=== PATIENT | male | born 1955 | race Hispanic/Latino ===

== ENCOUNTER → 2022-11-01 | Outpatient (CLI) | payer OTHER | END | disposition home or self-care (01) | LOC: RAH 08:58 | PROVIDERS: ATTEND Internal Medicine Cardiovascular Disease | DX: R07.89 Other chest pain (principal); I25.10 Atherosclerotic heart disease of native coronary artery without angina pectoris; E78.00 Pure hypercholesterolemia, unspecified; E11.9 Type 2 diabetes mellitus without complications; E03.9 Hypothyroidism, unspecified; Z95.5 Presence of coronary angioplasty implant and graft; Z79.84 Long term (current) use of oral hypoglycemic drugs; Z79.899 Other long term (current) drug therapy | CPT/HCPCS: 78452; 96374; 93017; A9500 ×2 ==

== ENCOUNTER 2022-11-28 09:52 | Emergency (ER) | payer OTHER ==
[~2022-11-28] VITALS: Ht 180.3 cm; Wt 95.3 kg
[2022-11-28 09:57] VITALS: BP 136/82
[2022-11-28] MEDS ORDERED: IBUP-2071 PO (10:28)
[2022-11-28] MEDS ORDERED: AMOX1TAB16 PO (10:28)
[2022-11-28] MEDS ORDERED: AMOX/CLAV 875/125MG TAB PO SCH (10:30)
[2022-11-28] MEDS ORDERED: TETANUS/DIPHTHERIA TOXOID [ADULT] 0.5 ML VIAL IM ONE (10:30)
== END 2022-11-28 10:51 | disposition home or self-care (01) ==
LOC: EDH 09:52
DX: S81.852A Open bite, left lower leg, initial encounter (principal); E11.9 Type 2 diabetes mellitus without complications; W54.0XXA Bitten by dog, initial encounter; Y93.89 Activity, other specified; Y92.89 Other specified places as the place of occurrence of the external cause; Y99.8 Other external cause status
CPT/HCPCS: 90471; 90714

== ENCOUNTER 2024-12-11 08:27 | Day surgery (SDC) | payer OTHER ==
[2024-12-09 10:07] VITALS: BP 143/69; PULSE 73; RESP 18; TEMP 97.9
[2024-12-09 10:07] LABS: BASOPHILS # (AUTO) 0.05 K/uL (0.00-0.20); BASOPHILS % (AUTO) 0.5 % (0.0-5.0); EOSINOPHILS # (AUTO) 0.07 K/uL (0.00-0.70); EOSINOPHILS % (AUTO) 0.7 % (0.0-8.0); HEMATOCRIT 48.1 % (42-54); IMMATURE GRANULOCYTE ABSOLUTE 0.03 K/uL (0-1); LYMPHOCYTES # (AUTO) 1.9 K/uL (1.0-4.8); LYMPHOCYTES % (AUTO) 19.1 % (21.0-51.0); MEAN CORPUSCULAR HGB CONC 34.7 g/dL (32.0-36.0); MEAN CORPUSCULAR VOLUME 83.7 fL (79-99); MONOCYTES # (AUTO) 0.7 K/uL (0.1-1.0); MONOCYTES % (AUTO) 6.9 % (3.0-13.0); NEUTROPHILS # (AUTO) 7.1 K/uL (1.8-7.7); NEUTROPHILS % (AUTO) 72.5 % (40.0-77.0); PLATELET COUNT (AUTO) 238 K/uL (130-400); RED BLOOD CELL COUNT(AUTO) 5.75 MIL/uL (4.50-6.20); WHITE BLOOD COUNT (AUTO) 9.8 K/uL (4.8-10.8)
[2024-12-09 10:09] LABS: APPEARANCE,URINE CLEAR (CLEAR); BILIRUBIN,URINE NEGATIVE (NEGATIVE); COLOR,URINE LIGHT-YELLOW (YELLOW); GLUCOSE, URINE (UA) NEGATIVE (NEGATIVE); KETONES,URINE NEGATIVE (NEGATIVE); LEUKOCYTE ESTERASE ,URINE NEGATIVE Leu/uL (NEGATIVE); NITRATE,URINE NEGATIVE (NEGATIVE); OCCULT BLOOD,URINE MODERATE (NEGATIVE); PROTEIN,URINE NEGATIVE (NEGATIVE); UROBILINOGEN,URINE 0.2 mg/dL (0.2-1.0)
[2024-12-09 10:10] LABS: ADD UA MICROSCOPIC YES
[2024-12-09 10:13] LABS: SQUAMOUS EPITHELIAL CELL,UR RARE /HPF (0-2); WBC,URINE 0-1 /HPF (0-1)
[2024-12-09 10:15] LABS: INR 1.06 (0.85-1.15); PROTHROMBIN TIME 11.2 SEC (9.6-11.6)
[2024-12-09 10:16] LABS: PARTIAL THROMBOPLASTIN TIME 26.4 SEC (26.3-35.5)
[2024-12-09 10:49] LABS: CREATININE 0.9 mg/dL (0.5-1.3); POTASSIUM 3.8 mmol/L (3.5-5.1)
--- NOTE | 2024-12-09 13:12 | EKG ---
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
--- NOTE | 2024-12-09 16:08 | HMCIMG ---
CHEST 1VW HISTORY: Preop COMPARISON: 11/09/2024 FINDINGS: A frontal projection of the chest was obtained. No acute pulmonary infiltrates is seen. The heart is borderline enlarged. Degenerative changes are seen. No evidence of aortic calcification is seen. IMPRESSION: 1. No acute pulmonary infiltrate is seen.
[2024-12-11] VITALS (10 sets, daily range): BP systolic 95–136; BP diastolic 57–69; PULSE 66–74; RESP 12–15; TEMP 97–97.5
[~2024-12-11] VITALS: Ht 182.9 cm; Wt 92.5 kg
[~2024-12-11 08:27] MED LIST: ACET-2743 PO; ASPI-1005 PO; ATOR40TA71 PO; LEVOTHYROXINE PO; METFORMIN PO; METO-408 PO; NITR0.4T50 SL; RAMI5CAP72 PO; TICA90TA PO; TRESIBA SQ
[2024-12-11] MEDS ORDERED: IOHEXOL-350 50ML VIAL IV ONE (10:56)
[2024-12-11] MEDS ORDERED: LIDOCAINE HCL 400MG/20ML VIAL ONE (10:56)
[2024-12-11] MEDS ORDERED: IOHEXOL 350 MG/ML 100ML INFUS..BTL IV ONE (10:56)
[2024-12-11] MEDS ORDERED: NITROGLYCERIN 50MG VIAL ONE (10:56)
[2024-12-11] MEDS ORDERED: HEParin 10,000 UNIT/10ML (1,000 UNIT/ML) VIAL ONE (10:56)
[2024-12-11] MEDS ORDERED: HEParin-NS 1,000 UNIT/500 ML 1,000 ML IV ONE (10:56)
[2024-12-11] MEDS ORDERED: MIDAZOLAM HCL 1 MG/ML 2ML VIAL ONE (11:17)
[2024-12-11] MEDS ORDERED: FENTanyl CITRate PF 50 MCG/1 ML 2ML VIAL ONE (11:17)
[2024-12-11] MEDS ORDERED: niCARDIpine 25MG INJ IV ONE (11:35)
[2024-12-11] MEDS ORDERED: phenylEPHRINE HCL 10 MG/ML 1ML VIAL IV ONE (12:10)
[2024-12-11] MEDS ORDERED: ASPIRIN 325MG EC TAB PO ONE (12:30)
[2024-12-11] MEDS ORDERED: HEParin-NS 1,000 UNIT/500 ML 500 ML IV ONE (12:42)
[2024-12-11] MEDS ORDERED: DEXTROSE 50%-WATER 50 ML DISP.SYRIN IV PRN (14:00)
[2024-12-11] MEDS ORDERED: 0.9%NACL 1000ML 1,000 ML IV SCH (14:00)
[2024-12-11] MEDS ORDERED: GLUCAGON 1MG KIT 1 MG ML IM PRN (14:00)
--- NOTE | 2024-12-11 14:26 | PRN ---
DATE OF PROCEDURE: 12/11/2024 PROCEDURE PERFORMED: LEFT HEART CATHETERIZATION, LEFT AND RIGHT SELECTIVE CORONARY ANGIOGRAM, PTCA AND SHARON WITH 3.5 X 12 MM RITA FRONTIER SHARON TO THE DISTAL RCA, PTCA/SHARON TO THE PDA WITH A 2.25 X 26 MM RITA FRONTIER, PTCA/SHARON TO THE DISTAL LAD WITH A 2.25 X 18 RITA FRONTIER SHARON VIA RIGHT RADIAL APPROACH, IVUS OF THE DISTAL RCA CONSTRUCTION REP: Allison Reis MD, [facility] INDICATION: Recurrent angina post MO status post recent anterior STEMI and SHARON and which to the proximal and mid LAD 11/09/2024, severe CAD of the distal LAD, distal RCA, and PDA noted during coronary angiography 11/09/2024, here for staged intervention PROCEDURE NOTE: After informed consent was obtained the patient was prepped and draped in the usual sterile fashion. A 6 F Slender sheath was inserted via the right radial artery using micropuncture technique after the Barbeau test was performed. The arterial sheath was aspirated and flushed with a radial cocktail of 200 mcg of nicardipine and 200 mcg of nitroglycerin followed by intravenous heparin 5000 units. A 6F JL-4 was then advanced to the ascending aorta over a J-tipped guidewire, was aspirated and flushed, and was used for selective left coronary angiograms in multiple obliquities. A JR-4 was advanced in a similar fashion to the ascending aorta over a J-tipped guidewire and was used for selective right coronary angiograms in multiple obliquities with findings as outlined below. PERCUTANEOUS CORONARY INTERVENTION: The RCA was approached initially with a JR4 guiding catheter and 300 cm Runthrough wire with modest difficulty due to tortuosity and diffuse disease in the PDA. IVUS identified that the distal RCA was a 3.5-4 mm diameter vessel. A 3.5 x 12 Rita Norman was directly deployed to the distal RCA without need for pre dilation and resulted in a 0% residual. A 2.0 x 15 mm NC Euphora Rx balloon was used to pre dilate and prepare the PDA vessel for a 2.25 x 26 Rita Norman to 0%. Finally a 2.25 x 18 mm Rita Norman was directly deployed in the distal LAD over the same Runthrough wire to a 0% residual. The patient tolerated the procedure well and was returned to the holding area in stable condition. FINDINGS: LEFT HEART HEMODYNAMICS: The LVEDP was 5 mm of mercury. LEFT VENTRICULOGRAM: No LV-gram was performed. CORONARY ANGIOGRAM: LEFT MAIN: The left main was normal and there was no dampening of the pressure waveform or ventricularization of the pressure waveform. LEFT ANTERIOR DESCENDING: The LAD had a widely patent stent sandwich with overlapping a remotely placed 3.0 x 16 Promus Premier SHARON from 2014, status post intervention 11/09/2024 with overlapping 4.0 x 12 Resolute Rita and 3.0 x 12 [place] Norman SHARON, a 40% stenosis after the stent sandwich, and a 90% distal LAD stenosis. The diagona l one was small and had a 90% stenosis. LEFT CIRCUMFLEX: The left circumflex was codominant and had a 30% proximal stenosis, 40% mid stenosis, 30% OM1 stenosis, and 60% PLVB stenosis. RAMUS INTERMEDIATE BRANCH: There was no ramus intermediate branch. RIGHT CORONARY ARTERY: The RCA had a 20% proximal stenosis, 80% distal stenosis, and three sequential 70% PDA stenoses. IMPRESSION: Successful multivessel PTCA/SHARON to the distal RCA, PDA, and distal LAD: A 3.5 x 12 [place] Norman was directly deployed to the distal RCA to a 0% residua l. A 2.25 x 26 [place] Norman to the PDA to 0%. A 2.25 x 18 mm [place] Norman was directly deployed in the distal LAD to a 0% residual Continued patency of a LAD stent sandwich overlapping a remotely placed 3.0 x 16 Promus Premier SHARON from 2014, "sandwiched" 11/09/2024 with overlapping 4.0 x 12 Resolute [place] and 3.0 x 12 Rita Norman SHARON RECOMMENDATION: Lifelong dual antiplatelet therapy Target LDL less than 55 Consider Repatha or PCSK9 inhibition if not at goal with statin and ezetimibe COMPLICATIONS OF PROCEDURE: None, the patient tolerated the procedure well and was returned to his room in stable condition. HEMOSTASIS: Vasc band hemostasis ESTIMATED BLOOD LOSS: 10 mL CONTRAST TOTAL: 200 mL ALLISON REIS MD Dec 11, 2024 14:26
[2024-12-11] MEDS ORDERED: INSULIN humuLIN R 100 UNIT/ML 3ML SQ SCH (16:30)
--- NOTE | 2024-12-11 17:05 | NUR ---
VASBAND REMOVED RIGHT RADIAL SITE DRESSED WITH STERILE GAUZE AND TEGADERM RIGHT RADIAL SITE ASYMPTOMATIC.
--- NOTE | 2024-12-11 17:25 | NUR ---
BOTH PT AND SPOUSE GIVEN VERBAL AND WRITTEN DISCHARGE INSTRUCTIONS. IV REMOVED SITE ASYMPTOMATIC. PT WHEELED OUT TO CAR, SPOUSE DRIVING
== END 2024-12-11 17:47 | disposition home or self-care (01) ==
LOC: DAH 08:27
PROVIDERS: ATTEND Internal Medicine Cardiovascular Disease
DX: I25.118 Atherosclerotic heart disease of native coronary artery with other forms of angina pectoris (principal); I25.2 Old myocardial infarction; I47.29 Other ventricular tachycardia; E78.5 Hyperlipidemia, unspecified; E11.9 Type 2 diabetes mellitus without complications; E03.9 Hypothyroidism, unspecified; Z79.899 Other long term (current) drug therapy; Z95.5 Presence of coronary angioplasty implant and graft; Z79.82 Long term (current) use of aspirin; Z79.84 Long term (current) use of oral hypoglycemic drugs; Z79.01 Long term (current) use of anticoagulants
CPT/HCPCS: 36415; 71045; 80048; 81001; 82948; 83880; 85025; 85347; 85610; 85730; 92978; 93005; 93458; 99156; 99157; A4606; C1769; C1887; C1894; C9600; C9601; J1644; J2250; J2371; J3010; J3490; Q9967; A4215; A4216; A4221; A4222; A4223; A4649; A4663; C1725; C1753; C1874; Q9965

== ENCOUNTER → 2025-02-24 | Outpatient (CLI) | payer OTHER ==
[~2025-02-24] MED LIST changes: +IOHEXOL-350 50ML VIAL IV ONE
--- NOTE | 2025-02-25 07:56 | HMCIMG ---
EXAM: CT Chest with and without Intravenous Contrast. CLINICAL HISTORY: OTHER CHEST PAIN TECHNIQUE: Axial computed tomography images of the chest with and without intravenous contrast. CONTRAST: Yes. COMPARISON: None provided. FINDINGS: LUNGS: The lungs are clear. No pulmonary mass. PLEURAL SPACES: No pneumothorax evident. No pleural effusions. HEART: No cardiomegaly. No significant pericardial effusion. Atherosclerotic calcifications in the thoracic aorta and coronary arteries. LYMPH NODES: No lymphadenopathy is evident. BONES: Degenerative changes in the visualized spine. No focal osseous abnormality or acute fracture. UPPER ABDOMEN: Unremarkable. IMPRESSION: 1. No acute intrathoracic findings. 2. Atherosclerosis and coronary artery disease. /[place]
== END | disposition home or self-care (01) ==
LOC: RAH 11:21
PROVIDERS: ATTEND Internal Medicine Cardiovascular Disease
DX: R07.89 Other chest pain (principal); I25.10 Atherosclerotic heart disease of native coronary artery without angina pectoris; M47.814 Spondylosis without myelopathy or radiculopathy, thoracic region
CPT/HCPCS: 71270; Q9967